=== PATIENT | male | born 1995 | race Two or more races ===

== ENCOUNTER 2018-09-02 13:53 | Emergency (ER) | payer BC ==
--- NOTE | 2018-09-02 14:32 | UC ---
Throat Pain/Nasal Dimitri HPI - HPI Summary HPI Summary: Pt presents with c/o ST. and with more pain on left side/tonsil than right. Pt had peritosillar abscess in January 2018 that was drained by Dr. Ko. - History of Current Complaint Chief Complaint: UCGeneralIllness Stated Complaint: THROAT COMPLAINT Time Seen by Provider: 09/02/18 14:16 Hx Obtained From: Patient Onset/Duration: Gradual Onset, Lasting Days - 5, Still Present Severity: Moderate Pain Intensity: 7 Cough: None Associated Signs & Symptoms: Positive: Dysphagia - Epiglottits Risk Factors Epiglottis Risk Factors: Negative - Allergies/Home Medications Allergies/Adverse Reactions: Allergies Allergy/AdvReac Type Severity Reaction Status Date / Time No Known Allergies Allergy Verified 09/02/18 14:08 Home Medications: Home Medications Ibuprofen TAB* [Motrin TAB* 800 MG] 800 mg PO Q6H PRN 09/02/18 [History Confirmed 09/02/18] PMH/Surg Hx/FS Hx/Imm Hx Previously Healthy: Yes - Surgical History Surgical History: Yes Surgery Procedure, Year, and Place: peritonsillar abcess - Family History Known Family History: Positive: Cardiac Disease - Social History Occupation: Student Lives: Dormitory/Roommates Alcohol Use: Occasionally Substance Use Type: Marijuana Substance Use Comment - Amount & Last Used: occasional Smoking Status (MU): Never Smoked Tobacco Have You Smoked in the Last Year: Yes - marijuana - Immunization History Vaccination Up to Date: Yes Review of Systems All Other Systems Reviewed And Are Negative: Yes Constitutional: Positive: Negative Skin: Positive: Negative Eyes: Positive: Negative ENT: Positive: Sore Throat Respiratory: Positive: Negative Cardiovascular: Positive: Negative Gastrointestinal: Positive: Negative Genitourinary: Positive: Negative Motor: Positive: Negative Neurovascular: Positive: Negative Musculoskeletal: Positive: Negative Neurological: Positive: Negative Psychological: Positive: Negative Is Patient Immunocompromised?: No Physical Exam Triage Information Reviewed: Yes Appearance: Well-Appearing Vital Signs: Initial Vital Signs Temp 99.0 F 09/02/18 14:08 Pulse 68 09/02/18 14:08 Resp 15 09/02/18 14:08 BP 123/56 09/02/18 14:08 Pulse Ox 100 09/02/18 14:08 Vital Signs Reviewed: Yes Eye Exam: Normal ENT: Positive: Tonsillar swelling, Other - left tonsil is swollen, unable to access whether it is a flucuant abscess posterior of tonsil Dental Exam: Normal Neck: Positive: Enlarged Nodes @ - submandibular Respiratory Exam: Normal Cardiovascular Exam: Normal Musculoskeletal Exam: Normal Neurological Exam: Normal Psychological Exam: Normal Skin Exam: Normal Throat Pain/Nasal Course/Dx - Differential Dx/Diagnosis Differential Diagnosis/HQI/PQRI: Peritonsillar Abscess, Pharyngitis, Tonsillitis Provider Diagnosis: Tonsillitis Discharge - Sign-Out/Discharge Documenting (check all that apply): Patient Departure All imaging exams completed and their final reports reviewed: No Studies - Discharge Plan Condition: Stable Disposition: HOME Prescriptions: Amoxicillin PO (*) [Amoxicillin 875 MG (*)] 875 mg PO Q12H #20 tab Patient Education Materials: Tonsillitis (ED) Referrals: [facility] [place] [facility] [Outside] - If Needed Kyrie Ko MD [Medical Doctor] - As Soon As Possible No Primary Care Phys,NOPCP [Primary Care Provider] - Additional Instructions: Please follow up with Dr. Ko as soon as possible. - Billing Disposition and Condition Condition: STABLE Disposition: Home
== END 2018-09-02 14:44 | disposition home or self-care (01) ==
LOC: UCCORT 13:53
DX: J03.90 Acute tonsillitis, unspecified (principal)
CPT/HCPCS: 87651; 99202; G0463

== ENCOUNTER 2019-08-02 18:35 | Emergency (ER) | payer BC ==
--- NOTE | 2019-08-02 18:53 | UC ---
Respiratory Complaint HPI - HPI Summary HPI Summary: 24-year-old male is here because he wants a chest x-ray. He was seen at [place] emergency room last evening, was told he had anxiety, and was given an albuterol inhaler to use. He states that he started feeling some difficulty taking a deep breath when he was laying down however after further discussion it was after he ate a spicy meal. He states that he has had that problem in the past. He has no history of asthma although he does smoke marijuana. He does not smoke cigarettes. He denies any recent fever, chills, no flu symptoms , he has no concern about Covid however he does work at [employer] and stated he took one week for low because he was afraid of Covid. He has not been in any contact with anyone that's had testing or who has been ill. Days when he takes a deep breath he feels some tightness. Denies cough. - History of Current Complaint Chief Complaint: UCGeneralIllness Stated Complaint: SHALLOW BREATHNG/TIGHTNESS CHEST Time Seen by Provider: 08/02/19 18:37 Hx Obtained From: Patient Onset/Duration: Gradual Onset, Lasting Minutes Timing: Intermittent Episodes Severity Initially: Mild Severity Currently: Mild Pain Intensity: 0 Aggravating Factors: Deep Breaths - Occasional with deep breaths he feels like he can't take a deep breath however he denies any pain on deep inspiration. No history of DVT, blood clots or pulmonary embolus. Associated Signs And Symptoms: Positive: Negative - Allergies/Home Medications Allergies/Adverse Reactions: Allergies Allergy/AdvReac Type Severity Reaction Status Date / Time No Known Allergies Allergy Verified 08/02/19 18:47 Home Medications: Home Medications NK [No Home Medications Reported] 08/02/19 [History Confirmed 08/02/19] PMH/Surg Hx/FS Hx/Imm Hx Previously Healthy: Yes - Surgical History Surgical History: Yes Surgery Procedure, Year, and Place: peritonsillar abcess - Family History Known Family History: Positive: Cardiac Disease, Other - No family history of pulmonary embolus, DVT or DE before age 50 - Social History Occupation: Employed Part-time Lives: With Family Alcohol Use: Occasionally Substance Use Type: Marijuana Substance Use Comment - Amount & Last Used: occasional Smoking Status (MU): Never Smoked Tobacco Have You Smoked in the Last Year: Yes - marijuana - Immunization History Vaccination Up to Date: Yes Review of Systems All Other Systems Reviewed And Are Negative: Yes Respiratory: Positive: Shortness Of Breath - Patient finds his shortness of breath as feeling shaky and feeling like he couldn't take a deep breath last evening when he was laying down following a spicy meal. Psychological: Positive: Other - Patient states he has no history of anxiety Is Patient Immunocompromised?: No Physical Exam Triage Information Reviewed: Yes Appearance: No Pain Distress, Well-Nourished Vital Signs: The patient was stable and not having any difficulty breathing. He was discharged prior to vital signs being done. Vital Signs Reviewed: No Eyes: Positive: Conjunctiva Clear ENT: Positive: Pharynx normal, TMs normal, Uvula midline Neck: Positive: Supple, Nontender, No Lymphadenopathy Respiratory: Positive: Lungs clear, Normal breath sounds, No respiratory distress, No accessory muscle use - Good air movement throughout all lung tate. No Distress Cardiovascular: Positive: RRR, No Murmur, Pulses Normal, Brisk Capillary Refill Musculoskeletal Exam: Normal Neurological Exam: Normal Psychological Exam: Normal Skin Exam: Normal Respiratory Course/Dx - Course Course Of Treatment: The patient is comfortable here. The chest x-ray as reviewed by myself and Dr. Monae was negative. I think the patient wanted reassurance that he did not have any pneumonia. He was advised to continuous albuterol inhaler as needed and go to the ER if he has any worsening symptoms. We did discuss what sounds like symptoms of GERD and I advised him to avoid spicy foods but follow-up with a senior commissary agent if he continues to have symptoms similar to what he has been experiencing. - Differential Dx/Diagnosis Provider Diagnosis: Bronchitis Discharge ED - Sign-Out/Discharge Documenting (check all that apply): Patient Departure All imaging exams completed and their final reports reviewed: No - Discharge Plan Condition: Good Disposition: HOME Patient Education Materials: Acute Bronchitis (ED) Referrals: [facility] REFERRAL [Outside] No Primary Care Phys,NOPCP [Primary Care Provider] - Additional Instructions: If you feel like you are wheezing or have a tight cough or tightness when you take a deep breath, use the albuterol inhaler given to [facility] and do to puffs every 4-6 hours as needed. If any symptoms worsen or you become more short of breath or pain on deep inspiration then you are to go to the emergency room for further treatment. - Billing Disposition and Condition Condition: GOOD Disposition: Home
--- NOTE | 2019-08-03 09:13 | UC ---
- Progress Note Progress Note: Reviewed radiology report by Dr. Chavez: no evidence of acute cardiopulmonary disease. This is consistent with wet read-->no change in plan. Course/Dx - Diagnoses Provider Diagnoses: Bronchitis Discharge ED - Sign-Out/Discharge Documenting (check all that apply): Post-Discharge Follow Up All imaging exams completed and their final reports reviewed: Yes - Discharge Plan Condition: Good Disposition: HOME Patient Education Materials: Acute Bronchitis (ED) Referrals: [facility] [place] [facility] [Outside] No Primary Care Phys,NOPCP [Primary Care Provider] - Additional Instructions: If you feel like you are wheezing or have a tight cough or tightness when you take a deep breath, use the albuterol inhaler given to [facility] department and do to puffs every 4-6 hours as needed. If any symptoms worsen or you become more short of breath or pain on deep inspiration then you are to go to the emergency room for further treatment. - Billing Disposition and Condition Condition: GOOD Disposition: Home
== END 2019-08-02 19:22 | disposition home or self-care (01) ==
LOC: UCCORT 18:35
DX: J40 Bronchitis, not specified as acute or chronic (principal)
CPT/HCPCS: 71046; 99211; G0463